=== PATIENT | female | born 1950 | race Caucasian/White ===

== ENCOUNTER 2017-09-28 10:15 | Emergency (ER) | payer OTHER ==
[~2017-09-28] VITALS: Ht 160 cm; Wt 65.8 kg
[~2017-09-28 10:15] MED LIST: ANT12.5 PO; BAY PO; CHLORTHALIDONE25 MG PO; GLU850 PO; JANUMET1 TA1 PO; LAC PO; LEVOTHYROXIN0.075 M2 PO; LIPI10 PO; LOSARTAN POTAS100 M1 PO; MAC100 PO; NOR10 PO
[2017-09-28 11:07] VITALS: BP 146/99
== END 2017-09-28 11:07 | disposition home or self-care (01) ==
LOC: ED 10:15
DX: H11.31 Conjunctival hemorrhage, right eye (principal); I10 Essential (primary) hypertension; E11.9 Type 2 diabetes mellitus without complications; Z88.5 Allergy status to narcotic agent; Z79.84 Long term (current) use of oral hypoglycemic drugs; Z79.899 Other long term (current) drug therapy

== ENCOUNTER 2017-12-23 09:26 | Inpatient (IN) | payer OTHER ==
[~2017-12-23] VITALS: Ht 154.9 cm; Wt 63.5 kg
[2017-12-23 10:03] LABS: PLATELET COUNT 301 x10^3mcL (130-400); RED CELL DISTRIBUTION WIDTH 12.1 % (11.5-14.5)
[2017-12-23 10:04] LABS: BASOPHIL % 4.9 % (0-2)
[2017-12-23 10:10] LABS: CALCIUM 8.9 mg/dL (8.5-10.1); CARBON DIOXIDE 27.2 mmol/L (21-32); CHLORIDE SERUM 99 mmol/L (98-107); CREATININE SERUM 0.8 mg/dL (0.6-1.0); GFR1 > 60 mL/min; GLUCOSE SERUM 235 mg/dL (74-106); POTASSIUM SERUM 3.5 mmol/L (3.5-5.1); SODIUM SERUM 136 mmol/L (136-145)
[2017-12-23 10:15] LABS: ALBUMIN 3.6 g/dL (3.4-5.0); ALKALINE PHOSPHATASE 79 U/L (46-116); ALT/SGPT 24 U/L (14-59); AST/SGOT 16 U/L (15-37); BILIRUBIN TOTAL 0.4 mg/dL (0.20-1.00); TOTAL PROTEIN, SERUM 7.4 g/dL (6.4-8.2)
[2017-12-23] MEDS ORDERED: ASPIR 8181 MG PO (12:12)
[2017-12-23] MEDS ORDERED: AMLODIPINE BESY10 M2 PO (12:13)
[2017-12-23] MEDS ORDERED: LEVOTHYROXIN0.075 M2 PO (12:13)
[2017-12-23] MEDS ORDERED: ATORVASTATIN CA40 M1 PO (12:13)
[2017-12-23] MEDS ORDERED: CLARITIN10 MG PO (12:14)
[2017-12-23] MEDS ORDERED: TOPROL XL25 MG PO (12:14)
[2017-12-23] MEDS ORDERED: BACLOFEN10 MG PO (12:14)
[2017-12-23] MEDS ORDERED: COZAAR100 MG PO (12:16)
[2017-12-23] MEDS ORDERED: MELOXICAM15 M1 PO (12:16)
[2017-12-23] MEDS ORDERED: CHLORTHALIDONE25 MG PO (12:18)
[2017-12-23] MEDS ORDERED: JANUMET 50-1,01 EACH PO (12:18)
[2017-12-23 13:13] LABS: MAGNESIUM 1.5 mg/dL (1.8-2.4); PHOSPHOROUS 3.4 mg/dL (2.5-4.9)
[2017-12-23 13:14] LABS: CHOLESTEROL/HDL RATIO 1.9
[2017-12-23 13:21] VITALS: BP 152/74
[2017-12-23 13:25] LABS: T3 TOTAL 1.3 ng/mL
[2017-12-23 13:35] LABS: FREE T4 1.74 ng/dL (0.76-1.46)
[2017-12-23 13:39] LABS: FREE THYROXINE INDEX 5.5 ug/dL (1.4-4.5); T4(THYROXINE) 15.3 ug/dL (4.7-13.3)
[2017-12-23 14:04] VITALS: BP 152/74
[2017-12-23 20:47] VITALS: BP 121/58
[2017-12-23 23:11] LABS: microscopic required? YES; urine erythrocyte NEGATIVE (NEGATIVE)
[2017-12-23 23:20] LABS: AMPHETAMINE QUAL UR NONE DETECTED (NEG <=1000)
[2017-12-24 06:04] VITALS: BP 138/55
[2017-12-24 07:35] LABS: BASOPHIL % 0.6 % (0-2); PLATELET COUNT 284 x10^3mcL (130-400); RED CELL DISTRIBUTION WIDTH 12.8 % (11.5-14.5)
[2017-12-24 07:40] LABS: CARBON DIOXIDE 28.1 mmol/L (21-32); CHLORIDE SERUM 106 mmol/L (98-107); CREATININE SERUM 0.7 mg/dL (0.6-1.0); GFR1 > 60 mL/min; GLUCOSE SERUM 178 mg/dL (74-106); MAGNESIUM 1.7 mg/dL (1.8-2.4); SODIUM SERUM 142 mmol/L (136-145)
[2017-12-24 09:02] VITALS: BP 147/81
[2017-12-24 13:32] VITALS: BP 123/60
[2017-12-24 16:32] VITALS: BP 112/48
[2017-12-24 20:42] VITALS: BP 119/53
[2017-12-25 05:26] VITALS: BP 149/61
[2017-12-25] MEDS ORDERED: MECLIZINE HYD12.5 MG PO (05:59)
[2017-12-25] MEDS ORDERED: LAC PO (06:00)
[2017-12-25] MEDS ORDERED: KEFLEX500 M1 PO (06:00)
[2017-12-25 06:45] LABS: BASOPHIL % 0.5 % (0-2); PLATELET COUNT 256 x10^3mcL (130-400); RED CELL DISTRIBUTION WIDTH 12.7 % (11.5-14.5)
[2017-12-25 06:49] LABS: CALCIUM 8.5 mg/dL (8.5-10.1); CARBON DIOXIDE 27.6 mmol/L (21-32); CHLORIDE SERUM 103 mmol/L (98-107); CREATININE SERUM 0.6 mg/dL (0.6-1.0); GFR1 > 60 mL/min; GLUCOSE SERUM 198 mg/dL (74-106); MAGNESIUM 1.7 mg/dL (1.8-2.4); POTASSIUM SERUM 3.7 mmol/L (3.5-5.1); SODIUM SERUM 139 mmol/L (136-145)
[2017-12-25 08:59] VITALS: BP 166/65
[2017-12-25 09:36] VITALS: BP 166/65
== END 2017-12-25 12:10 | disposition home or self-care (01) | DRG 690 ==
LOC: ED 09:26 → DU 12:02
PROVIDERS: Emergency Medicine; Family Medicine
DX: N39.0 Urinary tract infection, site not specified (principal); D68.69 Other thrombophilia; F33.9 Major depressive disorder, recurrent, unspecified; E86.0 Dehydration; E11.65 Type 2 diabetes mellitus with hyperglycemia; E11.59 Type 2 diabetes mellitus with other circulatory complications; E83.42 Hypomagnesemia; I10 Essential (primary) hypertension; E03.9 Hypothyroidism, unspecified; F41.1 Generalized anxiety disorder; D64.9 Anemia, unspecified; M19.90 Unspecified osteoarthritis, unspecified site; Z68.26 Body mass index [BMI] 26.0-26.9, adult
CPT/HCPCS: 82962; 83880; 84439; J1815; J1956; J2405; J7030; J8597; Q0092

== ENCOUNTER 2018-12-28 12:52 | Emergency (ER) | payer OTHER ==
[~2018-12-28] VITALS: Ht 154.9 cm; Wt 64.0 kg
[~2018-12-28 12:52] MED LIST changes: +AMLODIPINE BESY10 M2 PO; +ASPIR 8181 MG PO; +ATORVASTATIN CA40 M1 PO; +BACLOFEN10 MG PO; +CLARITIN10 MG PO; +COZAAR100 MG PO; +JANUMET 50-1,01 EACH PO; +KEFLEX500 M1 PO; +MECLIZINE HYD12.5 MG PO; +MELOXICAM15 M1 PO; +TOPROL XL25 MG PO
[2018-12-28 13:46] VITALS: BP 132/82
== END 2018-12-28 15:00 | disposition home or self-care (01) ==
LOC: ED 12:52
DX: J40 Bronchitis, not specified as acute or chronic (principal); M54.2 Cervicalgia; I10 Essential (primary) hypertension; E11.9 Type 2 diabetes mellitus without complications; M19.90 Unspecified osteoarthritis, unspecified site; E03.9 Hypothyroidism, unspecified; K21.9 Gastro-esophageal reflux disease without esophagitis; E78.00 Pure hypercholesterolemia, unspecified; Z88.5 Allergy status to narcotic agent
CPT/HCPCS: Q0092